=== PATIENT | female | born 1950 | race Caucasian/White ===

== ENCOUNTER → 2018-09-20 13:44 | Outpatient (REF) | payer MEDICARE, SELFPAY | LOC: LAB 13:44 | PROVIDERS: PCP Otolaryngology Facial Plastic Surgery; Visit Provider Otolaryngology | DX: J34.0 Abscess, furuncle and carbuncle of nose (principal); J34.2 Deviated nasal septum | CPT/HCPCS: 87070 ==

== ENCOUNTER → 2023-12-28 10:43 | Outpatient (CLI) | payer MEDICARE, SELFPAY ==
--- NOTE | 2023-12-28 10:44 | DI.MRI.S_ITS ---
PROCEDURE: MR KNEE RT WO CON INDICATIONS: INTERNAL DERANGEMENT OF RIGHT KNEE TECHNIQUE: Noncontrast sagittal PD fast spin echo and T2 fast spin echo with fat saturation, sagittal 3-D FLASH with fat saturation; coronal T1 spin echo and PD fast spin echo with fat saturation, and axial PD fast spin echo with fat saturation through the knee. COMPARISON: [facility] [place], [place], XR KNEE 4+ VIEWS RIGHT, 12/16/2023, 9:45. FINDINGS: Image quality: Diagnostic Menisci: Medial: Minimal fraying at the periphery of the meniscal capsular junction. No discrete tear. Lateral: Oblique tear through the body and posterior horn Cruciate ligaments: Intact Medial structures: MCL: Intact Pes anserine tendons: Intact Semimembranosus: Intact Lateral structures: LCL: Intact Biceps femoris: Intact IT band: Intact Popliteus tendon: Mild insertional tendinopathy Anterior structures: Extensor mechanism: Mild signal at the proximal and distal patellar tendon. Mild prepatellar soft tissue swelling. Fat pads: [id number] signal in the quadriceps fat pad Medial retinaculum: Intact. Trochlea: Shallow trochlea and slight lateral patellar tilt Bone and joint: Bones: No acute displaced fracture. Mild focal signal abnormality is seen in the anterior portion of the medial femoral condyle (05/08). Cartilage: [id number] heterogeneity involving all 3 compartments, without full-thickness defect or subchondral edema. There are mild osteophytes. Joint space: Trace joint effusion Wilson's cyst: Tiny Wilson's Soft tissues: Mild nonspecific subcutaneous edema. IMPRESSION: Oblique tear through the posterior horn and body of the lateral meniscus. Cruciate and collateral ligaments are intact. Mild signal in the patellar tendon may represent tendinopathy. Mild focal signal abnormality anterior portion of the medial femoral condyle, without displaced component, possibly a contusion. (/) Nonspecific edema in the quadriceps fat pad can sometimes be seen with impingement. The adjacent trochlea is mildly shallow, with mild lateral patellar tilt. Mild overall degenerative changes. Dictated by: Jomar Montanez M.D. on 12/28/2023 at 12:51 Approved by: Jomar Montanez M.D. on 12/28/2023 at 12:57
== END ==
PROVIDERS: PCP Family Medicine; Referring Provider Orthopaedic Surgery Foot and Ankle Surgery; Visit Provider Orthopaedic Surgery Foot and Ankle Surgery
DX: S83.281A Other tear of lateral meniscus, current injury, right knee, initial encounter (principal); M23.91 Unspecified internal derangement of right knee
CPT/HCPCS: 73721